=== PATIENT | male | born 1960 | race Caucasian/White ===

== ENCOUNTER → 2020-07-18 08:15 | Outpatient (BNVA) | payer OTHER, SELFPAY | PROVIDERS: PCP Internal Medicine; Visit Provider Surgery | DX: Z01.818 Encounter for other preprocedural examination (principal); E66.9 Obesity, unspecified; R06.02 Shortness of breath; Z68.36 Body mass index [BMI] 36.0-36.9, adult | CPT/HCPCS: 99202 ==

== ENCOUNTER → 2020-07-21 14:29 | Outpatient (REF) | payer OTHER, SELFPAY ==
--- NOTE | ~2020-07-21 | XR_ITS ---
EXAMINATION: XR CHEST CLINICAL INFORMATION: Shortness of breath COMPARISON: None TECHNIQUE: Two-view chest FINDINGS: The cardiac and mediastinal contours are normal. There is linear scarring or subsegmental atelectasis seen behind the sternum on the lateral view. The lungs are otherwise clear. There is no pleural effusion or pneumothorax. There are mild degenerative changes of the spine. XR/XR chest 2V IMPRESSION: Retrosternal linear scarring or subsegmental atelectasis.
--- NOTE | 2020-07-21 14:38 | ECG_ITS ---
Test Reason : R06.02 SOB Blood Pressure : / mmHG Vent. Rate : 065 BPM Atrial Rate : 065 BPM P-R Int : 176 ms QRS Dur : 108 ms QT Int : 404 ms P-R-T Axes : 028 -06 026 degrees QTc Int : 420 ms Normal sinus rhythm Normal ECG No previous ECGs available Referred By: Kesha Eli Electronically Signed By:FILI NUNN
[2020-07-22 14:32] LABS: H Pylori Breath Test NOT DETECTED (NOT DETECTED)
== END ==
LOC: HO.CARD 14:29
PROVIDERS: Visit Provider Surgery
DX: R06.02 Shortness of breath (principal)
CPT/HCPCS: 71046; 83013; 93005; 99211

== ENCOUNTER 2020-07-25 10:05 | Outpatient (REF) | payer OTHER, SELFPAY ==
[2020-07-25 11:42] LABS: MANUAL DIFF FLAG NO
[2020-07-25 12:06] LABS: Basophils Absolute Auto 0.1 X10*3/uL (0.0-0.2); Eosinophils Absolute Auto 0.4 X10*3/uL (0.0-0.4); Eosinophils Percent Auto 5.7 % (0-4); Hematocrit 47.6 % (42-52); Hemoglobin 16.7 g/dl (14.0-18.0); Imm Gran Abs Auto 0.01 X10*3/uL (0.00-0.03); Imm Gran Pct Auto 0.1 % (0.0-0.4); Lymphocytes Absolute Auto 2.6 X10*3/uL (1.2-4.9); Lymphocytes Percent Auto 35.5 % (20-40); Mean Corpuscular HGB Conc 35.1 g/dl (31.0-36.0); Mean Corpuscular Hemoglobin 30.1 pg (27.0-33.0); Mean Corpuscular Volume 85.9 fL (80-98); Mean Platelet Volume 13.5 fL (9.4-12.4); Monocytes Absolute Auto 0.6 X10*3/uL (0.1-1.2); Monocytes Percent Auto 8.9 % (2-11); Neutrophils Absolute Auto 3.5 X10*3/uL (2.0-8.3); Neutrophils Percent Auto 48.8 % (45-73); Platelet Count 171 X10*3/uL (160-400); Red Blood Count 5.54 X10*6/uL (4.60-5.80); Red Cell Distribution Width 12.9 % (11.0-16.0); White Blood Count 7.2 X10*3/uL (4.8-10.8)
[2020-07-25 12:20] LABS: Alanine Aminotransferase 43 U/L (0-40); Albumin Level 4.6 g/dL (3.5-5.0); Alkaline Phosphatase 36 U/L (39-117); Aspartate Amino Transferase 22 U/L (5-37); Bilirubin Total 0.9 mg/dL (0.0-1.0); Blood Urea Nitrogen 22 mg/dL (9-16); C Reactive Protein 0.06 mg/dL (< or = 0.50); Calcium 9.5 mg/dL (8.4-10.2); Cholesterol 105 mg/dL; Estimated Glomerular Filt Rate > 60; Glucose Fasting 119 mg/dL (60-99); HDL Cholesterol 30 mg/dL; Iron 127 mcg/dL (45-160); LDL Cholesterol Calculated 52 mg/dl; Percent Iron Saturation 37 % (15-50); Total Iron Binding Capacity 342 mcg/dL (228-428); Total Protein 7.2 g/dL (6.5-8.0); Triglycerides 119 mg/dL; Unsaturated Iron Binding 215 ug/dL
[2020-07-25 12:45] LABS: Vitamin D 25-OH Total 42.7 ng/mL (>30)
[2020-07-25 12:47] LABS: Vitamin B12 1235 pg/mL (200-900)
[2020-07-25 13:16] LABS: Anion Gap 14 (12-20); Carbon Dioxide 22 mmol/L (22-29); Chloride 109 mmol/L (96-108); Potassium 4.2 mmol/L (3.3-5.1); Sodium 141 mmol/L (135-145)
[2020-07-26 15:46] LABS: Calcium (PTHI) 9.9 mg/dL (8.6-10.3); PTHI 22 pg/mL (14-64)
[2020-07-28 00:47] LABS: Zinc 101 mcg/dL (60-130)
[2020-07-28 11:56] LABS: Vitamin B1 10 nmol/L (8-30)
[2020-07-31 04:21] LABS: Vitamin A 77 mcg/dL (38-98)
== END 2020-07-25 10:06 | disposition home or self-care (01) ==
LOC: HO.LAB 10:05
PROVIDERS: Visit Provider Surgery
DX: Z01.818 Encounter for other preprocedural examination (principal)
CPT/HCPCS: 36415; 80053; 80061; 82306; 82607; 83540; 83970; 84425; 84443; 84590; 84630; 85025; 86140

== ENCOUNTER → 2020-08-03 08:12 | Outpatient (BNVA) | payer OTHER, SELFPAY | PROVIDERS: PCP Internal Medicine; Visit Provider Surgery | DX: E66.9 Obesity, unspecified (principal); Z68.33 Body mass index [BMI] 33.0-33.9, adult | CPT/HCPCS: 99212 ==

== ENCOUNTER → 2020-08-15 08:04 | Outpatient (BNVA) | payer OTHER, SELFPAY | PROVIDERS: PCP Internal Medicine; Visit Provider Dietitian, Registered ==

== ENCOUNTER → 2020-09-07 08:28 | Outpatient (BNVA) | payer OTHER, SELFPAY | PROVIDERS: PCP Internal Medicine; Visit Provider Physician Assistant | DX: E66.9 Obesity, unspecified (principal); Z68.30 Body mass index [BMI] 30.0-30.9, adult; E11.9 Type 2 diabetes mellitus without complications | CPT/HCPCS: 99212 ==

== ENCOUNTER 2020-09-08 08:37 | Outpatient (REF) | payer OTHER, SELFPAY ==
[2020-09-08 10:46] LABS: Estimated Glomerular Filt Rate > 60
[2020-09-08 10:53] LABS: Estimated Average Glucose 105 mg/dL; Hemoglobin A1c % 5.3 %
== END 2020-09-08 08:38 | disposition home or self-care (01) ==
LOC: HO.LAB 08:37
PROVIDERS: Surgery; PCP Internal Medicine; Visit Provider Physician Assistant
DX: Z01.818 Encounter for other preprocedural examination (principal); E66.9 Obesity, unspecified; Z68.30 Body mass index [BMI] 30.0-30.9, adult; E11.9 Type 2 diabetes mellitus without complications
CPT/HCPCS: 36415; 82565; 83036

== ENCOUNTER → 2020-10-17 09:45 | Outpatient (BNVA) | payer OTHER, SELFPAY | PROVIDERS: PCP Internal Medicine; Referring Provider Internal Medicine; Visit Provider Surgery | DX: E66.3 Overweight (principal); Z68.27 Body mass index [BMI] 27.0-27.9, adult | CPT/HCPCS: 99212 ==